=== PATIENT | female | born 1980 ===

== ENCOUNTER 2020-10-19 18:44 | Emergency (ER) | payer OTHER, SELFPAY ==
--- NOTE | 2020-10-19 18:46 | DI.RAD.S_ITS ---
PROCEDURE: XR FINGER RT MIN 2V INDICATIONS: finger injury, crush TECHNIQUE: AP hand, 2 views of the 2nd digit acquired. COMPARISON: None. FINDINGS: Bones: No displaced fractures or dislocations. No suspicious bony lesions. Soft tissues: There is a soft tissue laceration in the 2nd digit distally. No definite radiopaque foreign bodies. IMPRESSION: 1. No displaced fracture or dislocation. 2. Soft tissue laceration in the distal 2nd digit without definite radiopaque foreign bodies. Dictated by: oJse Chirinos M.D. on 10/19/2020 at 21:01 Approved by: Jose Chirinos M.D. on 10/19/2020 at 21:03
[2020-10-19] MEDS: TET,DIPH,PERTUSS(ACELL),VAC/PF 0.5 ML SYRINGE IM (18:51)
[2020-10-19] MEDS: HYDROCODONE/ACET 5/325 TABLET 1 TAB PO (18:53)
[2020-10-19] MEDS: ONDANSETRON 4 MG ODT SL (18:55)
--- NOTE | 2020-10-19 19:22 | ED.UPPEXIN ---
HPI - Extremity Injury (Upper) General Chief Complaint: Extremity Injury, Upper Stated Complaint: Crushed finger between boat and dock Time Seen by Provider: 10/19/20 18:45 Source: patient Mode of arrival: Ambulatory Limitations: no limitations History of Present Illness HPI narrative: 40F nonsmoker with noncontributory medical history presents with a chief complaint of a crush injury to her right index finger. She was docking a boat and it appeared as if it might hit the dock and as a consequence she reached out and tried to stop it and her finger was squished between the boat and the dock. She now has bleeding laceration to the tip of her finger but denies numbness, tingling or weakness. Her tetanus will need to be updated. She is otherwise well and free of complaint. She has pain with motion and improvement with rest. Related Data Previous Rx's Medication Instructions Recorded cephalexin 500 mg capsule 500 mg PO Q6H 7 Days #28 cap 10/19/20 Allergies Allergy/AdvReac Type Severity Reaction Status Date / Time No Known Drug Allergies Allergy Verified 10/19/20 21:47 Review of Systems Constitutional Constitutional: Denies chills, Denies fatigue and Denies fever(s) Eyes Eyes: Denies change in vision ENT Ears, Nose, Mouth, and Throat: Denies change in voice Cardiovascular Cardiovascular: Denies chest pain Respiratory Respiratory: Denies cough and Denies wheezing Gastrointestinal Gastrointestinal: Denies abdominal pain Musculoskeletal Musculoskeletal: Reports limited range of motion Integumentary/Breasts Skin/Breast: Reports wounds Neurologic Neurologic: Denies behavioral changes Psychiatric Psychiatric: Denies anxiety and Denies behavioral changes Endocrine Endocrine: Denies fatigue Allergic/Immunologic Allergic/Immunologic: Denies wheezing Patient History Social History Smoking Status: Never smoker Smoking Status: Never smoker Exam Narrative Exam Narrative: GEN: AOx3 and in mild distress EYES: Pupils are equal, round, and reactive to light and accommodation. Extraoccular muscles are intact bilaterally. There is no subconjunctival hemorrhage or exudate. CHEST: Lungs are clear to auscultation bilaterally and free of wheezes, rales, or rhonchi. Heart rate is regular rhythm, there are no murmurs, clicks, rubs, or gallops. There is no chest wall tenderness. ABD: Abdomen is soft and nontender. There is no guarding or rebound. Bowel sounds are normal in all 4 quadrants. There is no mass or organomegaly. EXT: Full but painful range of motion of right index finger with irregular laceration to the tip of her finger. No numbness, tingling or weakness. No obvious foreign body SKIN: Warm, pink, and dry. No erythema or rash Procedures Laceration Repair Laceration 1: Site: hand Side (If applicable): right Size (cm): 1 Description: stellate, flap and irregular Depth: simple, single layer Local Anesthetic: other anesthetic (digital block) Pre-repair: wound explored, irrigated extensively and deep structures intact Skin layer closed with: nylon Size (cm): 5-0 Number of sutures: 3 Technique: simple, interrupted Nerve Block Nerve Block 1: Time out performed: Yes Local Anesthetic: lidocaine 1% and with bicarb Nerve Blocks: digital Procedure Successful: Yes Patient Tolerated Procedure: Well Complications: none Course Orders Ordered: Discontinued Medications Hydrocodone Bitart/Acetaminophen (Hydrocodone/Acet 5/325 Tablet) 1 tab PO NOW ONE Stop: 10/19/20 18:47 Last Admin: 10/19/20 18:53 Dose: 1 tab Documented by: YOU Hydrocodone Bitart/Acetaminophen (Hydrocodone/Acet 5/325 Prepack) 1 bottle MISC SEEINSTR ONE Stop: 10/19/20 21:27 Last Admin: 10/19/20 21:37 Dose: 1 bottle Documented by: REBECCA Cefazolin Sodium (Cephalexin 250 Mg Prepack) 1 bottle MISC SEEINSTR ONE Stop: 10/19/20 21:27 Last Admin: 10/19/20 21:37 Dose: 500 mg Documented by: REBECCA Diphtheria/Tetanus/Acell Pertussis (Tet,Diph,Pertuss(Acell),Vac/Pf 0.5 Ml Syringe) 0.5 ml IM .ONCE ONE Stop: 10/19/20 18:47 Last Admin: 10/19/20 18:51 Dose: 0.5 ml Documented by: YOU Lidocaine/Sodium Bicarbonate (Lido 1%/Sod Bicarb 8.4% (10ml) 10 Ml Syringe) 10 ml INJ NOW ONE Stop: 10/19/20 19:33 Last Admin: 10/19/20 19:40 Dose: 10 ml Documented by: REBECCA Ondansetron HCl (Ondansetron 4 Mg Odt) 4 mg SL NOW ONE Stop: 10/19/20 18:47 Last Admin: 10/19/20 18:55 Dose: 4 mg Documented by: YOU MDM - Extremity Injury (Upper) Imaging Data Extremity x-ray #1: Radiologist's Impression: Maria Teresa Bar 40 F [address] [id number] ReportSigned Patient: Ricardo BarR#: [id number]: 1980Acct:[id number]/Sex: 40 / FDate of Service: 10/19/20Loc: EDAccession Number: [id number] Procedure: XR finger RT min 2V Ordering Provider: Brooklyn Klein D.O. PROCEDURE: XR FINGER RT MIN 2V INDICATIONS: finger injury, crush TECHNIQUE: AP hand, 2 views of the 2nd digit acquired. COMPARISON: None. FINDINGS: Bones: No displaced fractures or dislocations. No suspicious bony lesions. Soft tissues: There is a soft tissue laceration in the 2nd digit distally. No definite radiopaque foreign bodies. IMPRESSION: 1. No displaced fracture or dislocation. 2. Soft tissue laceration in the distal 2nd digit without definite radiopaque foreign bodies. Dictated by: Jose Chirinos M.D. on 10/19/2020 at 21:01 Approved by: Jose Chirinos M.D. on 10/19/2020 at 21:03 Discharge Plan Departure Patient Disposition: Home Clinical Impression: Finger laceration Qualifiers: Encounter type: initial encounter Finger: index finger Damage to nail status: without damage Foreign body presence: without foreign body Laterality: right Qualified Code(s): S61.210A - Laceration without foreign body of right index finger without damage to nail, initial encounter Instructions: DI for Laceration Repair -- Complex Activity Restrictions/Additional Instructions: *You have been diagnosed with [complex laceration and crush injury to right index finger] *What to do: *Please continue to take your regular medications as directed. [x ] New medication prescriptions sent to your pharmacy: [[facility] in [place] ] [ ] New medication written as a paper prescription [ ] No new medications given * Please keep the wound clean and dry to the best of your ability. Please monitor for signs of infection such as redness to the skin or increasing pain. Have the sutures removed by your doctor in about 7 days. If you are unable to get into your doctor, we would be happy to remove the sutures in that same timeframe. *If you do not have a primary care provider please contact the [facility] Resource line at [phone]. They will ask some questions about your medical history and help get you set up with a doctor in the community. *Return to Emergency Department if you should have any new, worsening or concerning symptoms, such as [fever greater than 101 F, shaking chills, worsening pain, persistent vomiting or other bothersome symptoms] Prescriptions: New cephalexin 500 mg capsule 500 mg PO Q6H 7 Days Qty: 28 RF: 0 Referrals: [facility] [Outside]
[2020-10-19] MEDS: LIDO 1%/SOD BICARB 8.4% (10ML) 10 ML SYRINGE INJ (19:40)
[2020-10-19] MEDS: HYDROCODONE/ACET 5/325 PREPACK 1 BOTTLE MISC (21:37)
[2020-10-19] MEDS: cephALEXin 250 MG PREPACK 1 BOTTLE MISC (21:37)
== END 2020-10-19 21:56 | disposition home or self-care (01) ==
PROVIDERS: Emergency Provider Emergency Medicine
DX: S61.210A Laceration without foreign body of right index finger without damage to nail, initial encounter (principal); W23.0XXA Caught, crushed, jammed, or pinched between moving objects, initial encounter; Z23 Encounter for immunization
CPT/HCPCS: 12041; 64450; 73140; 90471; 99283; 99284; 90715